=== PATIENT | female | born 1985 | race Caucasian/White ===

== ENCOUNTER 2016-12-24 20:46 | Emergency (ER) | payer OTHER ==
[~2016-12-24] VITALS: Ht 154.9 cm; Wt 81.6 kg
--- NOTE | 2016-12-24 20:48 | NUR ---
PATIENT C/O FAGAN,HYPERGLYCEMIA OF 500 WHICH PATIENT CHECKED 30MINS PRIOR TO ARRIVAL. ASLO C/O DIZZINESS, PT ALERT, ORIENTED X 4, NO RESP DISTRSS NOTED OR REPORTED UPON ASSESSMENT... MD AT BEDSIDE...
[2016-12-24] MEDS ORDERED: METF500T4 PO (21:01)
[2016-12-24] MEDS ORDERED: SITA50TA PO (21:01)
[2016-12-24] MEDS ORDERED: IV NORMAL SALINE 1000 ML BAG IV ONE (21:15)
[2016-12-24 21:33] LABS: BASOPHILS % (AUTO) 0.5 % (0.0-2.0); EOSINOPHILS # (AUTO) 0.1 K/uL (0.0-0.7); HEMATOCRIT 50.4 % (37-47); HEMOGLOBIN 17.2 G/DL (12.0-16.0); LYMPHOCYTES # (AUTO) 1.2 K/UL (0.8-4.8); MEAN CORPUSCULAR HEMOGLOBIN 30.3 UUG (27.0-31.0); MEAN CORPUSCULAR HGB CONC 34 g/dL (32.0-37.0); MONOCYTES % (AUTO) 0.5 % (0.0-11.0); NEUTROPHILS # (AUTO) 6.4 K/UL (1.8-8.9); PLATELET COUNT (AUTO) 271 K/UL (150-450); RED BLOOD CELL COUNT(AUTO) 5.66 MIL/UL (4.2-5.4); WHITE BLOOD COUNT (AUTO) 7.7 K/UL (4.0-11.2)
[2016-12-24 21:34] LABS: *BILIRUBIN,URIN NEGATIVE (NEGATIVE); *BLOOD, URINE NEGATIVE (NEGATIVE); *CLARITY,URINE CLEAR (CLEAR); *COLOR,URINE YELLOW (YELLOW); *KETONES,URINE TRACE (NEGATIVE); *PROTEIN,URINE NEGATIVE (NEGATIVE); *UROBILINOGEN,URINE 0.2 E.U./dl (NORMAL); LEUKOCYTE ESTERASE ,URINE NEGATIVE (NEGATIVE); NITRITE, URINE NEGATIVE (NEGATIVE); PH,URINE 5.5 (5.0-8.0)
[2016-12-24 21:38] LABS: UGLUCOSE 3+ (NEGATIVE)
[2016-12-24 21:40] LABS: CREATININE 1.2 mg/dL (0.6-1.3); POTASSIUM 4.5 mmol/L (3.5-5.1)
[2016-12-24 21:43] LABS: BACTERIA,URINE NONE SEEN /HPF (NONE SEEN); RBC,URINE 0-3 /HPF (0-3); SQUAMOUS EPITHELIAL CELL,UR FEW /HPF (NONE SEEN); WBC,URINE 0-3 /HPF (0-3)
[2016-12-24] MEDS ORDERED: INSULIN REGULAR, HUMAN 1,000 UNITS/10 ML VIAL IV ONE (21:45)
[2016-12-24 21:54] LABS: BILIRUBIN,DIRECT 0.1 mg/dL (0.0-0.2); BILIRUBIN,TOTAL 0.5 mg/dL (0.2-1.0); TOTAL PROTEIN, SERUM 9.5 g/dL (6.4-8.2)
[2016-12-24] MEDS ORDERED: INSULIN REGULAR, HUMAN 300 UNIT/3 ML VIAL ONE (22:02)
[2016-12-24] MEDS ORDERED: SUMATRIPTAN SUCCINATE 50 MG TABLET PO ONE (23:15)
[2016-12-24] MEDS ORDERED: SUMATRIPTAN SUCCINATE 50 MG TABLET ONE (23:30)
--- NOTE | 2016-12-24 23:48 | NUR ---
Patient discharged to home in stable conditon. Written and verbal after care instructions given. Patient verbalizes understanding of instructions. pt walked out unassisted with belongings at side...
[2016-12-25 00:23] VITALS: BP 135/81
== END 2016-12-25 00:24 | disposition home or self-care (01) ==
LOC: ER 20:47
DX: E11.65 Type 2 diabetes mellitus with hyperglycemia (principal); J45.909 Unspecified asthma, uncomplicated; G43.909 Migraine, unspecified, not intractable, without status migrainosus; Z91.040 Latex allergy status
CPT/HCPCS: 36415; 71010; 83690; 84703; 85025; A4663; J1815; J7030

== ENCOUNTER 2017-01-15 10:25 | Emergency (ER) | payer OTHER ==
[~2017-01-15] VITALS: Ht 157.5 cm; Wt 81.6 kg
[~2017-01-15 10:25] MED LIST: METF500T4 PO; SITA50TA PO
[2017-01-15] MEDS ORDERED: TOPI25CA PO (10:39)
[2017-01-15] MEDS ORDERED: ALBU8HFA4 INH (10:39)
--- NOTE | 2017-01-15 10:57 | NUR ---
Pt c/o vaginal irritation and pain x 2 weeks, not clearing up. Pt denies CP, SOB, dizziness, n/v, no other complaints, no distress noted.
[2017-01-15 11:43] LABS: *BILIRUBIN,URIN NEGATIVE (NEGATIVE); *BLOOD, URINE NEGATIVE (NEGATIVE); *CLARITY,URINE SLIGHTLY CLOUDY (CLEAR); *COLOR,URINE YELLOW (YELLOW); *KETONES,URINE NEGATIVE (NEGATIVE); *PROTEIN,URINE 1+ (NEGATIVE); LEUKOCYTE ESTERASE ,URINE NEGATIVE (NEGATIVE); NITRITE, URINE NEGATIVE (NEGATIVE)
[2017-01-15 11:47] LABS: *URINE HCG, QUAL NEGATIVE (NEGATIVE)
[2017-01-15 12:01] LABS: UGLUCOSE 2+ (NEGATIVE)
[2017-01-15 12:05] LABS: RBC,URINE 0-3 /HPF (0-3)
[2017-01-15 12:06] LABS: BACTERIA,URINE MODERATE /HPF (NONE SEEN); MUCUS,URINE MODERATE /LPF (0-FEW); SQUAMOUS EPITHELIAL CELL,UR MANY /HPF (NONE SEEN)
--- NOTE | 2017-01-15 12:16 | NUR ---
Gave pt RX and d/c instructions, verbalized understanding.
== END 2017-01-15 12:19 | disposition home or self-care (01) ==
LOC: ER 10:26
DX: N76.0 Acute vaginitis (principal); G43.909 Migraine, unspecified, not intractable, without status migrainosus; E11.9 Type 2 diabetes mellitus without complications; J45.909 Unspecified asthma, uncomplicated; Z91.040 Latex allergy status
CPT/HCPCS: 84703; A4663

== ENCOUNTER 2017-01-19 17:38 | Emergency (ER) | payer OTHER ==
[~2017-01-19] VITALS: Ht 157.5 cm; Wt 81.6 kg
[~2017-01-19 17:38] MED LIST changes: +ALBU8HFA4 INH; +TOPI25CA PO
[2017-01-19] MEDS ORDERED: KETOROLAC TROMETHAMINE 30 MG INJ IM ONE (18:45)
--- NOTE | 2017-01-19 18:50 | NUR ---
Patient discharged to home in stable conditon. Written and verbal after care instructions given. Patient verbalizes understanding of instructions.band aid placed on the affected areas.
[2017-01-19] MEDS ORDERED: KETOROLAC TROMETHAMINE 30 MG INJ ONE (18:51)
== END 2017-01-19 18:51 | disposition home or self-care (01) ==
LOC: ER 17:41
DX: L01.00 Impetigo, unspecified (principal); R51 Headache; J45.909 Unspecified asthma, uncomplicated; E11.9 Type 2 diabetes mellitus without complications; Z91.040 Latex allergy status; I10 Essential (primary) hypertension
CPT/HCPCS: 96372; 99283; A4663; J1885